=== PATIENT | female | born 1970 | race Hispanic/Latino ===

== ENCOUNTER 2024-07-10 06:40 | Observation (INO) | payer BC ==
[2024-07-07 14:31] LABS: BASOPHILS # (AUTO) 0.04 K/uL (0.00-0.20); BASOPHILS % (AUTO) 0.4 % (0.0-5.0); EOSINOPHILS # (AUTO) 0.06 K/uL (0.00-0.70); EOSINOPHILS % (AUTO) 0.7 % (0.0-8.0); HEMATOCRIT 39.3 % (36-48); IMMATURE GRANULOCYTE ABSOLUTE 0.04 K/uL (0-1); LYMPHOCYTES # (AUTO) 2.2 K/uL (1.0-4.8); LYMPHOCYTES % (AUTO) 24.7 % (21.0-51.0); MEAN CORPUSCULAR HEMOGLOBIN 26.7 pg (27.0-33.0); MEAN CORPUSCULAR HGB CONC 31.6 g/dL (32.0-36.0); MEAN CORPUSCULAR VOLUME 84.7 fL (79-99); MONOCYTES # (AUTO) 0.6 K/uL (0.1-1.0); MONOCYTES % (AUTO) 6.3 % (3.0-13.0); NEUTROPHILS % (AUTO) 67.5 % (40.0-77.0); PLATELET COUNT (AUTO) 254 K/uL (130-400); RED BLOOD CELL COUNT(AUTO) 4.64 MIL/uL (4.00-5.50); RED CELL DISTRIBUTION WIDTH 15.5 % (11.0-15.5); WHITE BLOOD COUNT (AUTO) 8.9 K/uL (4.8-10.8)
[2024-07-07 14:34] VITALS: BP 157/76; PULSE 76; RESP 18; TEMP 97.7
[2024-07-07 14:45] LABS: POTASSIUM 3.8 mmol/L (3.5-5.1)
[2024-07-07 14:54] LABS: INR 1.06 (0.85-1.15); PROTHROMBIN TIME 11.4 SEC (9.6-11.6)
[2024-07-07 14:56] LABS: PARTIAL THROMBOPLASTIN TIME 26.8 SEC (26.3-35.5)
[~2024-07-10] VITALS: Ht 170.2 cm; Wt 85.3 kg
[2024-07-10] VITALS (27 sets, daily range): BP systolic 127–160; BP diastolic 80–94; PULSE 60–100; RESP 12–20; TEMP 97.2–98.6; O2SAT 96
[~2024-07-10 06:40] MED LIST: AMLO-257 PO; OMEP40CA21 PO
[2024-07-10] MEDS ORDERED: SUCCINYLCHOLINE CHLORIDE 20 MG/ML 10 ML VIAL ONE (07:44)
[2024-07-10] MEDS ORDERED: LIDOCAINE PF 100MG/5ML (2%) SYRINGE 5ML ONE (07:44)
[2024-07-10] MEDS ORDERED: ondanSETRON 4MG INJ ONE (07:46)
[2024-07-10] MEDS ORDERED: proPOFol 10 MG/ML 20ML VIAL IV ONE (07:46)
[2024-07-10] MEDS ORDERED: GLYCOPYRROLATE 0.2 MG/ML 5 ML VIAL ONE (07:46)
[2024-07-10] MEDS ORDERED: rocuRONium bROMide 10MG/1ML 5ML VL ONE ×2 (07:46→09:39)
[2024-07-10] MEDS ORDERED: MIDAZOLAM HCL 1 MG/ML 2ML VIAL ONE (07:46)
[2024-07-10] MEDS ORDERED: NEOSTIGMINE METHYLSULFATE 1MG/ML IV ONE (07:46)
[2024-07-10] MEDS ORDERED: dexaMETHasone SOD PHOSPHATE 10MG/ML 1ML VIAL ONE (07:46)
[2024-07-10] MEDS ORDERED: FENTanyl CITRate PF 50 MCG/1 ML 2ML VIAL ONE ×3 (07:47→11:01)
[2024-07-10] MEDS: ceFAZolin SODIUM 2 GM VIAL ONE (07:50)
[2024-07-10] MEDS: LACTATED RINGERS 1000ML 1,000 ML IV ONE (07:50)
[2024-07-10] MEDS: SCOPOLAMINE HYDROBROMIDE 1 EACH ADH..PATCH TD ONE (08:00)
[2024-07-10] MEDS: FAMOTIDINE 20MG VIAL IV ONE (08:01)
[2024-07-10] MEDS: acetaMINOPHEN 1,000 MG/100 ML VIAL IV ONE (08:01)
[2024-07-10] MEDS: ceFAZolin SODIUM 2 GM VIAL IVPB ONE (09:00)
[2024-07-10] MEDS ORDERED: ketaMINE 50MG/ML SYRINGE 50 MG/ML DISP.SYRIN ONE (09:41)
[2024-07-10] MEDS: MEPERIDINE-PF 25 MG/ML SYG ONE ×2 (11:46→11:57)
[2024-07-10] MEDS: morPHINE 4 MG SYG IV PRN (14:46)
[2024-07-10] MEDS: CLINDAMYCIN IVPB 600MG/50ML 50 ML IV SCH (16:00)
[2024-07-10] MEDS: LACTATED RINGERS 1000ML 1,000 ML IV SCH (16:01)
[2024-07-10] MEDS: ondanSETRON 4MG INJ IVP PRN (19:47)
[2024-07-11] VITALS: BP 124/86; PULSE 94; RESP 17; TEMP 98.4
[2024-07-11] MEDS: acetaMINOPHEN WITH coDEINE 1 TAB TAB PO PRN (02:03)
[2024-07-11 04:00] VITALS: BP 142/80; PULSE 85; RESP 18; TEMP 98.4
[2024-07-11 05:11] LABS: HEMATOCRIT 34.8 % (36-48); MEAN CORPUSCULAR HEMOGLOBIN 26.2 pg (27.0-33.0); MEAN CORPUSCULAR HGB CONC 31.9 g/dL (32.0-36.0); MEAN CORPUSCULAR VOLUME 82.3 fL (79-99); RED BLOOD CELL COUNT(AUTO) 4.23 MIL/uL (4.00-5.50); RED CELL DISTRIBUTION WIDTH 15.3 % (11.0-15.5); WHITE BLOOD COUNT (AUTO) 15.5 K/uL (4.8-10.8)
[2024-07-11 05:30] LABS: CREATININE 1.1 mg/dL (0.5-1.0); POTASSIUM 3.2 mmol/L (3.5-5.1)
[2024-07-11 08:00] VITALS: BP 132/89; PULSE 87; RESP 20; TEMP 98.4
[2024-07-11 08:30] VITALS: O2SAT 96
[2024-07-11] MEDS: PoTASSium chloRIDE 20MEQ ER 20 MEQ ERTAB PO ONE (11:04)
[2024-07-11 12:00] VITALS: BP 136/87; PULSE 92; RESP 20; TEMP 98.8
== END 2024-07-11 14:00 | disposition home or self-care (01) ==
LOC: DAH 06:40 → DAHIP 06:41 → DAH 06:41 → 3CH 12:45
PROVIDERS: ADMIT Surgery; ATTEND Surgery
DX: M79.3 Panniculitis, unspecified (principal); L30.4 Erythema intertrigo; L98.7 Excessive and redundant skin and subcutaneous tissue; I10 Essential (primary) hypertension; K21.9 Gastro-esophageal reflux disease without esophagitis; E78.00 Pure hypercholesterolemia, unspecified; Z90.49 Acquired absence of other specified parts of digestive tract; Z79.899 Other long term (current) drug therapy; Z86.2 Personal history of diseases of the blood and blood-forming organs and certain disorders involving the immune mechanism
CPT/HCPCS: 80048 ×2; 84703; 85025; 85610; 85730; 36415 ×2; 71045; 93005; 15830; 15847; 96376 ×2; 96365; 96366 ×2; 96375; 85027; A6260; G0378 ×23; A4663; J7120 ×2; A4452; J3490 ×8; J3010 ×3; J1100; J0330; J2001; J2250; J2704; J2405 ×2; J2270 ×3; J2710; J2175 ×2; J0690 ×2; A4649; A4930; A4215; A4223; A4222; A4221; A4600